=== PATIENT | female | born 1975 | race Caucasian/White ===

== ENCOUNTER → 2017-08-07 09:37 | Outpatient (CLI) | payer OTHER, SELFPAY ==
--- NOTE | 2017-08-07 09:59 | MRI_ITS ---
STUDY: MRI BRAIN WITH AND WITHOUT CONTRAST REASON FOR EXAM: Female, 42 years old. MIGRAINE X 1 year, worse x 7 months -- 1-2 a week. TECHNIQUE: Standardized multiplanar fat and water weighted pulse sequences were obtained. 7 ml of Gadavist contrast material was administered intravenously for the contrast portion of the examination. COMPARISON: None. FINDINGS: Normal size of the ventricles and extra-axial spaces for the patient's age. Normal white matter tracts of the supratentorial brain. Normal bilateral basal ganglia. Normal thalami. There is no extra-axial fluid accumulation. Normal flow voids within the major intracranial circulation suggesting patency by spin echo criteria. Normal venous enhancement. There is no enhancing intra-axial or extra-axial abnormality. Normal sella turcica, pituitary gland, infundibular stalk, optic chiasm and hypothalamus. Normal tectal plate and pineal gland. Normal midbrain, maik and medulla. Normal cerebellum. Normal basal cisterns. Normal bilateral temporal bones. Normal bilateral internal auditory canals. No demonstrated orbital abnormality, within the constraints of a routine brain study. Normal visualized paranasal sinuses. Normal calvarium and skull base. Normal visualized soft tissue structures. Normal visualized upper cervical spine. MRI/Brain W/WO Contrast IMPRESSION: Normal unenhanced and enhanced MRI of the brain. Electronically Signed: Indra Mobley MD at 11:01 EDT Tel , Service support ,
== END ==
PROVIDERS: Family Provider Family Medicine; PCP Family Medicine
DX: G43.901 Migraine, unspecified, not intractable, with status migrainosus (principal)
CPT/HCPCS: 70553; A9585

== ENCOUNTER 2019-09-22 10:02 | Emergency (ER) | payer OTHER, SELFPAY ==
[2019-09-22 10:04] VITALS: BP 161/97; PULSE 71; RESP 16; TEMP 36.3; O2SAT 99; BMI 22.7
[2019-09-22 10:06] VITALS: BP 161/97; PULSE 71; RESP 16; TEMP 36.3; O2SAT 99
--- NOTE | 2019-09-22 10:07 | NURSING ---
NO OLD EKGS
--- NOTE | 2019-09-22 10:22 | RAD_ITS ---
STUDY: X-RAY CHEST REASON FOR EXAM: Female, 44 years old. INCREASE IN DRY COUGH, CHEST PAIN THAT IS A DULL STAB, NUMB FEELING, LOST OF TASTE TECHNIQUE: Single AP portable view of the chest. COMPARISON: None. FINDINGS: The lungs are clear and expanded. There is no demonstrated pleural abnormality. Normal size heart. Normal mediastinum and chevy. Normal visualized pulmonary arteries. Normal visualized aortic arch and descending thoracic aorta. Normal visualized thoracic spine. Normal visualized ribs, clavicles, and shoulders. There is no demonstrated abnormality of the visualized soft tissue structures of the upper abdomen. RAD/Chest 1 View (Portable) IMPRESSION: Normal x-ray examination of the chest. Electronically Signed: Shantel Vargas, at 11:10 EDT Tel , Service support ,
--- NOTE | 2019-09-22 10:22 | EKG12_ITS ---
Test Reason : SOB Blood Pressure : / mmHG Vent. Rate : 063 BPM Atrial Rate : 063 BPM P-R Int : 136 ms QRS Dur : 092 ms QT Int : 432 ms P-R-T Axes : 040 076 056 degrees QTc Int : 442 ms Normal sinus rhythm Normal ECG Confirmed by NATTY NICHOLSON, ANSELMO ([id number]), editor sound RENATA DELONG ([id number]) on 09/28/2019 2:19:39 PM Referred By: MARISABEL Confirmed By:ANSELMO LUZ MD
--- NOTE | 2019-09-22 10:22 | ED.VIS.GEN ---
History of Present Illness Chief Complaint: Chest Pain Narrative: This patient is a 44-year-old female who presents with chest pain. This is been occurring intermittently over the past 1 week. She describes it as a dull aching feeling on the left side of her chest. No specific exacerbating or relieving factors. She denies any associated shortness of breath diaphoresis nausea or vomiting. She does also report a dry cough and loss of taste. No congestion rhinorrhea sore throat vomiting or diarrhea. Past Medical History - Allergies and Home Meds Allergies/Adverse Reactions: Allergies acetaminophen [From Vicodin] Allergy (Verified 09/22/19 10:03) Hives hydrocodone [From Vicodin] Allergy (Verified 09/22/19 10:03) Hives Primary Care Physician: NOT,DEFINED [NON-STAFF] - Past Medical History: None Smoking Status: Current every day smoker Review of Systems All systems negative except as indicated General: Denies: Fever Eyes: Denies: Visual changes - bilaterally ENT: Denies: Bilateral ear pain Cardiovascular: Reports: Chest pain Respiratory: Reports: Cough. Denies: Dyspnea, Sputum Gastrointestinal: Denies: Nausea, Vomiting, Diarrhea Musculoskeletal: Denies: Myalgias, Arthralgias Skin: Denies: Rash Neurological: Denies: Headache Physical Exam Vital Signs/Narrative: Vital Signs Temp Pulse Resp BP Pulse Ox 09/22/19 10:06 97.3 F L 71 16 161/97 H 99 09/22/19 10:04 97.3 F L 71 16 161/97 H 99 Inital Vital Signs reviewed: Yes General: Well nourished Head: Normocephalic Eyes: EOMI ENT: Moist mucous membranes Neck: Supple Cardiovascular: Regular rate, Regular rhythm Respiratory: No distress Abdomen: Soft Skin: Normal color Neurological: Alert Psychological: Normal affect Diagnostic/Tx/Re-eval - Medical Decision Making EKG shows normal sinus rhythm at a rate of 63 with no acute ischemic changes. Labs notable only for elevation of hemoglobin, patient is a smoker. Troponin is negative. Heart score is 1. Given that the patient does have a cough this could be due to an infectious etiology. She was advised on quarantine measures. She understands to return for new or worsening symptoms. She was advised on signs and symptoms to monitor for. The patient was discharged to follow-up with primary care. ED Disposition - Plan for ED Patient: Disposition: Home or Assisted Living Diagnosis: Chest pain, Cough Instructions: ED Chest Pain Atypical Unkn Cause Referrals: NOT,DEFINED [NON-STAFF] -
[2019-09-22 10:48] LABS: Absolute Lymphocyte Count 2.46 X10^3/uL (0.83-4.51); Basophil# 0.04 X10^3/uL; Basophil% 0.4 % (0-1); Eosinophil# 0.18 X10^3/uL; Eosinophils% 1.7 % (0-5); Hematocrit 55.4 % (37-47); Lymphocyte # 2.46 X10^3/ul (4.0); Lymphocyte % 23.3 % (19-41); Mean Corp Hgb Conc 33.2 g/dL (32-36); Mean Corpuscular Hgb 32.9 pg (27.0-32.0); Mean Corpuscular Volume 99.1 fL (81-99); Mean Platelet Vol. 11.6 fl (6.2-12.0); Monocyte# 0.79 X10^3/uL; Monocyte% 7.5 % (0-10); NRBC Flagged by Analyzer 0 % (0-5); Neutrophil # 7.03 X10^3/uL (2.7-7.7); Neutrophil % 66.6 % (47-70); Platelet Count 180 K/mm3 (150-450); RBC Distribution Width CV 13.3 % (11.6-14.6); RBC Distribution Width SD 48.7 fl (35.1-43.9); Red Blood Count 5.59 M/mm3 (4.2-5.4); White Blood Count 10.6 K/mm3 (4.4-11.0)
[2019-09-22 10:55] LABS: Differential Indicated SCAN CRITERIA MET; Hemoglobin 18.4 g/dL (12.0-15.0)
[2019-09-22 11:05] LABS: Anion Gap 4 (5-15); BUN 6 mg/dL (7-18); BUN/Creat Ratio 8.4 RATIO (10-20); Calcium,Total 9.3 mg/dL (8.5-10.1); Chloride 106 mmol/L (98-107); Creatinine, Serum 0.71 mg/dL (0.55-1.02); EST Glomerular Filtration Rate 95 mL/min (>60); Est Glom Filt Rate - Afr Amer 115 mL/min (>60); Estimated Creatinine Clearance 99.35 ml/min; Glucose 103 mg/dL (74-106); Potassium 3.5 mmol/L (3.5-5.1); Sodium Level 140 mmol/L (136-145)
[2019-09-22 11:13] VITALS: BP 161/90; PULSE 60; RESP 16; TEMP 36.8; O2SAT 98
--- NOTE | 2019-09-22 11:55 | ED.RN ---
IV DC'ED, CATHETER INTACT, SMALL GAUZE DRESSING PLACED. PT AMBULATES OUT OF ROOM WITHOUT DIFFICULTY. PATIENT AMBULATES OUT OF ROOM WITHOUT DIFFICULTY.
[2019-09-23 11:56] LABS: Pathologist Review Reviewed
== END 2019-09-22 11:55 | disposition home or self-care (01) ==
PROVIDERS: Emergency Provider Emergency Medicine
DX: R07.9 Chest pain, unspecified (principal); R05 Cough; F17.210 Nicotine dependence, cigarettes, uncomplicated
CPT/HCPCS: 71045; 80048; 84484; 85025; 93005; 99284; A4216

== ENCOUNTER 2020-09-04 14:11 | Emergency (ER) | payer OTHER, SELFPAY ==
[2020-09-04 14:11] VITALS: BP 157/86; PULSE 63; RESP 17; TEMP 36.2; O2SAT 99; BMI 23.3
--- NOTE | 2020-09-04 14:14 | RAD_ITS ---
STUDY: X-RAY - LEFT KNEE REASON FOR EXAM: Female, 45 years old. FALL, PAIN TECHNIQUE: 4 view(s) of the knee. COMPARISON: None. FINDINGS: Normal visualized distal femur. Normal visualized proximal tibia and fibula. Normal proximal tibiofibular articulation. Normal medial femorotibial compartment. Normal lateral femorotibial compartment. Normal patellofemoral articulation. Small joint effusion. RAD/Knee 4 or More Views IMPRESSION: Small joint effusion. Electronically Signed: Abdoul Rose MD at 14:36 EDT , Service support ,
--- NOTE | 2020-09-04 15:07 | ED.VIS.FALL ---
HPI HPI - Fall History of Present Illness Chief Complaint: Lower Extremity Injury Informant: patient Occured/Mechanism Occurred: Today Mechanism/Context: Yes trip Fall down steps #: 4 Pain/Injury Location: left knee Quality of Pain: Aching Current Severity: Moderate Maximum Severity: Severe Worsened by: walking, moving Relieved by: resting Associated Symptoms Associated Symptoms: Negative for Parasthesias, Weakness, Loss of function, Inability to ambulate, Loss of consciousness and Amnesia Narrative Narrative: Accidentally fell down her hardwood steps, sliding down. Bumped back of her head, no LOC. Also bumped her left elbow, without significant injury. Her left knee is hurting worse, she is unsure if she hit it against a surface or if she twisted/torqued it somehow. She has been able to walk on it since the injury. Pain is mostly medial. She denies any nausea, vomiting, vision changes, focal neurologic symptom. She does have a mild headache but is used to headaches, and this 1 is no worse than usual. Takes no anticoagulant or antiplatelet medications. [facility] Medical History (Updated 09/04/20 @ 15:[address] Gene Wilkerson MD) Anxiety Depression Hyperlipemia Migraine Home Medications atorvastatin 20 mg PO DAILY 09/04/20 [History Last Taken Unknown] escitalopram oxalate 10 mg PO DAILY 09/04/20 [History Last Taken Unknown] Allergy/AdvReac Type Severity Reaction Status Date / Time acetaminophen [From Vicodin] Allergy Hives Verified 09/04/20 14:11 hydrocodone [From Vicodin] Allergy Hives Verified 09/04/20 14:11 Surgical History (Updated 09/04/20 @ 15:[address] Gene Wilkerson MD) History of left knee surgery Social History Smoking Status: Current every day smoker ROS ROS ED Constitutional Constitutional ED: Denies chills or fever(s) Eyes Eyes: Denies change in vision or diplopia ENT ENT ED: Denies rhinorrhea or sore throat Cardiovascular Cardiovascular: Denies chest pain or palpitations Respiratory/Chest Respiratory/Chest: Denies cough or dyspnea Gastrointestinal Gastrointestinal: Denies abdominal pain, diarrhea, nausea or vomiting Genitourinary Genitourinary ED: Denies dysuria or hematuria Musculoskeletal Musculoskeletal: Reports extremity pain; Denies back pain or neck pain Integumentary Denies abscess or rash Neurologic Neurologic: Reports headache(s); Denies dizziness, paresthesias or weakness Psychiatric Psychiatric: Denies anxiety or suicidal thoughts EXAM Physical Exam Const Vital Signs: 09/04/20 14:11 Temperature 97.1 F L Temperature Source Temporal Pulse Rate 63 Respiratory Rate 17 Blood Pressure 157/86 H Blood Pressure Mean 109 Pulse Ox 99 Oxygen Delivery Method Room Air Positive well nourished and well developed General Appearance ED: well developed and NAD HEENT Reports moist mucous membranes normocephalic and atraumatic Eyes PERRL and EOMs intact bilaterally Neck full ROM and supple Resp normal respiratory effort and clear to auscultation bilaterally Cardio regular rate, regular rhythm and no murmurs GI non-tender and non-distended Auscultation: normoactive bowel sounds Palpation: soft Back/Spine no CVA tenderness General Back: other FROM Extremity normal to inspection and no calf tenderness General Extremety ED: Negative for edema or pulses abnormal General Extremity: Negative for edema or pulses abnormal Left Lower Extremity: knee joint inspection (Skin intact, no obvious wounds), palpation (Tender to palpation medial to the patella, around the superior and the inferior poles. Nontender at the joint line of the knee proper in the lateral aspect and tibial tuberosity and patella itself. There is a small effusion.), ROM (Limited at extremes of extension and flexion. Extensor mechanism intact.), neurovascular exam (Intact) and other (All ligaments stable with short endpoints on stressing and no major pains) Neuro oriented x3, CN's II-XII intact bilaterally and no sensory deficits noted Sensorium / Orientation: awake and alert Motor Exam: strength 5/5 throughout Skin no rashes or lesions noted and no wounds MDM MDM MDM Narrative Medical decision making narrative: On my interpretation 4 views of the left knee show no acute abnormality. Joint effusion noted by radiology. Patient was reassured, differential includes contusion and internal derangement or sprain. Not knowing the mechanism I am unable to rule out the possibility of a meniscal injury here. At this time supportive care, using pain as her guide, ice, ibuprofen which she was given a dose of here, as well as an Mikey wrap. She is comfortable with that plan of following up if pain is not proved within 1 week. Radiography Diagnostic Testing: Radiology Impression Knee X-Ray 09/04/20 14:14 IMPRESSION: Small joint effusion. Electronically Signed: Abdoul Rose MD at 14:36 EDT , Service support , Discharge Plan Triage Chief Complaint: Lower Extremity Injury ED Provider: Gene Wilkerson Dx/Rx/DC Orders Clinical Impression: Injury of knee, left, Closed head injury without loss of consciousness Instructions: ED Bandage Elastic Wrap, ED Knee Sprain Prescriptions: No Action atorvastatin 20 mg tablet 20 mg PO DAILY RF: 0 escitalopram oxalate 10 mg tablet 10 mg PO DAILY RF: 0 Primary Care Provider: Dhara Tomlinson NP Referrals: Dhara Tomlinson MOVIE SHOT CAMERAMAN, MOVIE SHOT CAMERAMAN-C [Primary Care Provider] - 1 Week if not improving Activity Restrictions/Additional Instructions: Ibuprofen as needed/able for pain. Rest with icing. Disposition Disposition: Home, self care
[2020-09-04] MEDS: Ibuprofen 600 MG Tablet PO (15:22)
== END 2020-09-04 15:25 | disposition home or self-care (01) ==
PROVIDERS: Emergency Provider Emergency Medicine; PCP Registered Nurse
DX: S09.90XA Unspecified injury of head, initial encounter (principal); S89.92XA Unspecified injury of left lower leg, initial encounter; W10.9XXA Fall (on) (from) unspecified stairs and steps, initial encounter; Y93.9 Activity, unspecified; Y92.9 Unspecified place or not applicable; Y99.9 Unspecified external cause status; E78.5 Hyperlipidemia, unspecified; F32.9 Major depressive disorder, single episode, unspecified; F41.9 Anxiety disorder, unspecified; F17.200 Nicotine dependence, unspecified, uncomplicated; Z79.899 Other long term (current) drug therapy
CPT/HCPCS: 73564; 99283

== ENCOUNTER 2022-06-28 12:50 | Day surgery (SDC) | payer MEDICAID, SELFPAY ==
[2022-06-28 13:19] VITALS: BP 133/82; PULSE 57; RESP 18; TEMP 36.2; O2SAT 100; BMI 24.1
[2022-06-28] MEDS: Lactated Ringers 1,000 ML 15 ML IV (13:44)
[2022-06-28] MEDS: Clindamycin 900 MG/50 ML BAG 75 MG IV (14:36)
[2022-06-28] MEDS: Bupivacaine 0.5% PF 10 ML VIAL (14:40)
[2022-06-28 15:41] VITALS: BP 127/72; BP 133/82; PULSE 63; RESP 16; TEMP 36.5; O2SAT 94
--- NOTE | 2022-06-28 15:46 | EX.PCM.DISCH ---
Discharge Instructions Follow Up Care Test Results: Test results from this visit will be discussed in further detail at your follow-up appointment, if applicable. Discharge Plan Admission Attending Provider: Ramirez South Primary Care Provider: Dhara Tomlinson NP Discharge Orders/Prescriptions Prescriptions: No Action atorvastatin 20 mg tablet 20 mg PO DAILY escitalopram oxalate 10 mg tablet 10 mg PO DAILY bupropion HCl [Wellbutrin SR] 150 mg Tablet Sustained-Release 12 Hr 150 mg PO BID Aleve-D Sinus and Headache 220-120 mg Tablet Extended Release 12 Hr 1 tab PO BID PRN (Reason: Migraine Headache) Referrals / Follow Up: Dhara Tomlinson NP, HEPATOLOGY PHYSICIAN-C [Primary Care Provider] - Disposition Disposition (needs filled in before D/C Order can be placed): Home, Self Care
--- NOTE | 2022-06-28 15:47 | PCM.OPRPT ---
Report of Operation Date of Procedure: 06/28/22 Pre-Operative Diagnosis: 1. hallux IPJ sesmoid right 2. tailors bunion right 3. gryhphotic toenail 1 right Post-Operative Diagnosis: same Surgery/Procedure Performed:: 1. excision 2. ostectomy 3. excision Surgeon: Ramirez South Type of Anesthesia: General/Supplemental Specimen's removed: none sent, normal bone ossicle Drains: none Estimated Blood Loss (mL): 5 ml Description of Procedure: sterile prep, ankle tourniuqet at 250 MMHg. medial great toe incision, dissected bluntly to protect neurovasc structures and FHL tendon. incision along periosteum and capsule. excised sesmoid. incision along dorsal tailors bunion. carefule disection to protect neurovasc structures. periosteal and capsular incision. lateral and plantar condyle resected with a saw. great nail avulsed totally. small blade used to resect nail matrix and nail bed, closed with steris strips. all wound closed deep with 3.0 vicryl and skin with 3.0 nylon. bleeding well controlled, full vascular status restored after dropping tourniquet. Complications none Admit VTE Documentation VTE Present on Admission: Yes VTE Mechan Device Prophylaxis: SCD's VTE Pharm Prophylaxis ordered?: No Reason prophylaxis not ordered:: Treatment Not Indicated
[2022-06-28 15:50] VITALS: BP 133/82; BP 134/73; PULSE 59; RESP 16; O2SAT 96
[2022-06-28 16:00] VITALS: BP 123/73; BP 133/82; PULSE 63; RESP 16; O2SAT 93
[2022-06-28 16:15] VITALS: BP 116/82; BP 133/82; PULSE 59; RESP 16; TEMP 36.4; O2SAT 97
[2022-06-28 16:41] VITALS: BP 133/82
== END 2022-06-28 16:45 | disposition home or self-care (01) ==
LOC: SDC 12:53 → AC 12:54
PROVIDERS: PCP Registered Nurse; Referring Provider Podiatrist Foot & Ankle Surgery; Visit Provider Podiatrist Foot & Ankle Surgery
PROC: (CPT 28292; principal; 2022-06-28 14:15)
DX: M21.621 Bunionette of right foot (principal); J44.9 Chronic obstructive pulmonary disease, unspecified; M20.5X1 Other deformities of toe(s) (acquired), right foot; L60.2 Onychogryphosis; F41.9 Anxiety disorder, unspecified; F17.210 Nicotine dependence, cigarettes, uncomplicated; Z79.899 Other long term (current) drug therapy
CPT/HCPCS: 28110; 11750; 28124; 01480; J7120; J2405

== ENCOUNTER 2023-07-27 21:20 | Emergency (ER) | payer SELFPAY ==
[2023-07-27 21:21] VITALS: BP 155/93; PULSE 107; RESP 44; TEMP 36.4; O2SAT 97; BMI 23.6
[2023-07-27 21:23] VITALS: BP 155/93; PULSE 108; RESP 44; TEMP 36.4; O2SAT 97
[2023-07-27 21:34] VITALS: O2SAT 99
--- NOTE | 2023-07-27 21:40 | EDS_ITS ---
HPI <LON Ann - Last Filed: 07/27/23 22:17> History of Present Illness Chief Complaint: Shortness of Breath Narrative Narrative: Patient is a 48-year-old female who currently does not see a PCP who presents to the emergency department for 4 days of worsening cough, congestion, difficulty breathing. Patient was seen in urgent care greater than 2 weeks ago, placed on a prednisone burst as well as antibiotics. Patient states he only felt slightly better. Patient does smoke 1 pack/day, she states that over the last 24 hours she has been unable to perform daily activities because she is so short of breath. She denies any specific pain. She is bringing up green to yellow sputum. She denies any fevers however have subjective chills. PFSH <LON Ann - Last Filed: 07/27/23 22:17> [facility] Medical History (Updated 07/27/23 @ 22:14 by LON Ann) Alcohol use Anxiety Asthma Chronic cough Depression Easy bruising Hyperlipemia Low iron Marijuana use Migraine Piercing Restless legs Shortness of breath on exertion Smoker Wears contact lenses Wears partial dentures Home Medications albuterol sulfate 90 mcg/actuation aerosol inhaler (Ventolin HFA) 2 puff inhalation Q4H PRN PRN Wheezing 10 days #1 device 07/27/23 [Rx Last Taken Unknown] prednisone 20 mg tablet 40 mg (2 x 20 mg) PO DAILY 10 days #20 tabs 07/27/23 [Rx Last Taken Unknown] Allergy/AdvReac Type Severity Reaction Status Date / Time acetaminophen [From Vicodin] Allergy Hives Verified 07/27/23 21:21 hydrocodone [From Vicodin] Allergy Hives Verified 07/27/23 21:21 Surgical History Hx of colonoscopy Hx of dilation and curettage Hx of foot surgery Hx of ovarian cystectomy Social History Smoking Status: Current every day smoker tobacco type: cigarettes ROS <LON Ann - Last Filed: 07/27/23 22:17> ROS ED ROS Narrative Constitutional: Negative for fever, chills, weight loss, weakness Eyes: Negative for vision loss, vision change, double vision ENT: Negative for any sore throat, ear pain, congestion Cardiovascular: Negative for any chest pain, tightness, palpitations Respiratory: Negative for any hemoptysis, orthopnea. Positive for cough, dyspnea, dyspnea on exertion, sputum production Gastrointestinal: Negative for any abdominal pain, nausea, vomiting, diarrhea, constipation, blood in stool, blood in vomit : Negative for any urinary frequency, dysuria, retention, blood in urine Muscle skeletal: Negative for any neck pain, back pain Neurological: Negative for any headache, syncope, dizziness Skin: Negative for any rashes, itching, abrasions, lacerations Psychiatric: Negative for any depression, anxiety, stress, suicidal ideation, homicidal ideation Hematologic: Negative for any excessive bruising, easy bleeding EXAM <LON Ann - Last Filed: 07/27/23 22:17> Physical Exam Narrative Exam Narrative: Vital signs reviewed. Tachycardic, tachypneic, HEET: Head normocephalic atraumatic, TMs clear bilaterally. Posterior pharynx is clear, moist mucous membranes. Nares clear bilaterally. Neck: Supple with no lymphadenopathy or tenderness. No signs of meningismus. Cardiac: Regular rate and rhythm no murmurs gallops or rubs, equal peripheral pulses bilaterally. Respiratory: Patient has slight inspiratory, expiratory wheezing, harsh cough. No chest tenderness. Abdomen: Soft, nontender, nondistended. No abdominal bruit or pulsatile masses. No hepatosplenomegaly Extremities: No peripheral edema, no signs of gross trauma or deformity. Active full range of motion of all extremities. Neuro: Cranial nerves II through XII intact, no focal neurological deficits. Skin: Clean dry and intact with no rash, purpura, petechiae, vesicles or pustules. Backs/flank: No CVA tenderness, no midline spinal tenderness, no deformity. Psych: Normal mood and affect. No SI, HI or acute psychosis. Const Vital Signs: 07/27/23 21:21 07/27/23 21:23 07/27/23 21:34 Temperature 97.5 F L 97.5 F L Temperature Source Temporal Temporal Pulse Rate 107 H 108 H Respiratory Rate 44 H 44 H Respiratory Effort Short of Breath Respiratory Depth Normal Respiratory Pattern Tachypnea Blood Pressure 155/93 H 155/93 H Blood Pressure Mean 113 113 Pulse Ox 97 97 Oxygen Delivery Method Room Air 07/27/23 21:49 Temperature Temperature Source Pulse Rate 111 H Respiratory Rate 24 H Respiratory Effort Respiratory Depth Respiratory Pattern Tachypnea Blood Pressure Blood Pressure Mean Pulse Ox Oxygen Delivery Method <Dr. Walker Jrodan MD - Last Filed: 07/27/23 23:11> Physical Exam Const Vital Signs: 07/27/23 21:21 07/27/23 21:23 07/27/23 21:34 Temperature 97.5 F L 97.5 F L Temperature Source Temporal Temporal Pulse Rate 107 H 108 H Respiratory Rate 44 H 44 H Respiratory Effort Short of Breath Respiratory Depth Normal Respiratory Pattern Tachypnea Blood Pressure 155/93 H 155/93 H Blood Pressure Mean 113 113 Pulse Ox 97 97 Oxygen Delivery Method Room Air 07/27/23 21:49 Temperature Temperature Source Pulse Rate 111 H Respiratory Rate 24 H Respiratory Effort Respiratory Depth Respiratory Pattern Tachypnea Blood Pressure Blood Pressure Mean Pulse Ox Oxygen Delivery Method MDM <LON Ann - Last Filed: 07/27/23 22:17> [facility] Treatment and Re-Evaluation :: Patient is stable, vital signs are stable, patient is tachypneic, patient does have some advantageous lung sounds which is expiratory wheezing. Differential diagnosis includes however is not limited to: Community-acquired pneumonia, COPD exacerbation, asthma exacerbation, influenza, COVID-19. Patient will receive breathing treatments, oral steroids, two-view chest x-ray. All radiologic examinations were read, reviewed by the emergency department attending. From these reads, a plan of care will be put in place. Patient on reevaluation was feeling better. At this time, patient's 2 view chest x-ray was unremarkable, COVID-19, influenza, RSV was negative. At this time, patient be diagnosed with COPD exacerbation. I did consult the patient on quitting tobacco. Patient will be placed on 40 mg of prednisone for 10 days. She will follow-up closely with her PCP. I will give her another refill on her albuterol inhaler. She instructed return for any worsening symptoms. <Dr. Walker Jordan MD - Last Filed: 07/27/23 23:11> [facility] Narrative Medical decision making narrative: I have personally performed a face to face assessment of the patient and have reviewed the MARGARET Note. I performed a substantive portion of the visit including all aspects of the following. My [place] findings include: History is 48-year-old female smoker URI symptoms for more than a week. Already was on an antibiotic and sounds like possibly steroids per a urgent care. She is wheezing and short of breath. Denies any chest pain or hemoptysis. No leg pain or swelling. Exam is [48-year-old female vital signs stable. Pulse ox 97% on room air no signs hypoxia. HEENT exam unremarkable. Neck nontender no JVD. No lymphadenopathy. Lungs expiratory wheezing. Equal and symmetrical. Prolonged expiratory phase. Increased respiratory rate. Tachycardic. Heart tachycardic 110 no murmur. Chest wall nontender. No crepitance or subcu air. Abdomen soft nontender. Moving all 4 extremities. Calves are nontender without edema or cords. She is awake alert no focal motor deficits.] Medical Decision Making [suspect underlying COPD with a viral URI. Chest x-ray was obtained shows no pneumonia. Chronic changes. No effusions. COVID, flu and RSV were all negative.] Other additions or changes: [Patient treated with aerosols and oral prednisone. She is improved on repeat exam at 11 PM. She will be discharged home on prednisone 40 mg a day for 10 days. Encouraged to stop smoking. Use her inhaler. Follow-up with her primary care physician.] History & Record Review Discussion w/independent historian: Patient Additional record(s) reviewed:: Prior inpatient record, Prior outpatient record, Prior ED visit and Prior labs Lab Data Attestation: I reviewed the patient's lab results. Lab results narrative: COVID, flu and RSV negative. Radiography Chest X-Ray - ED: 2 View, Read by ED Physician, Normal, Heart, Lungs, Mediastinum, Bony Structures, No Acute Disease and Chronic Changes Diagnostic Testing: Chest x-ray, 2 views, interpreted by myself shows normal cardiac silhouette. Normal mediastinum. No pneumonia. No pneumothorax. Chronic changes in the lung consistent with underlying lung disease. Discharge Plan Triage Chief Complaint: Shortness of Breath ED Midlevel Provider: Edmar Domínguez ED Provider: Walker Jordan Dx/Rx/DC Orders Clinical Impression: COPD exacerbation Instructions: Asthma and COPD Prescriptions: New prednisone 20 mg tablet 40 mg PO DAILY 10 Days Qty: 20 0RF albuterol sulfate [Ventolin HFA] 90 mcg/actuation HFA aerosol inhaler 2 puff inhalation Q4H PRN PRN (Reason: Wheezing) 10 Days Qty: 1 2RF Primary Care Provider: Dhara Tomlinson NP Referrals: Dhara Tomlinson CHILD WELFARE COUNSELOR, CHILD WELFARE COUNSELOR-C [Primary Care Provider] - Activity Restrictions/Additional Instructions: Take the prednisone 40 mg daily for 10 days, use the albuterol inhaler. Try your best to decrease your tobacco use. Disposition Disposition: Home, Self Care
[2023-07-27 21:49] VITALS: PULSE 111; RESP 24
[2023-07-27] MEDS: Ipratropium/Albuterol Sulfate 3 ML AMPUL.NEB INHALATION (21:49)
[2023-07-27] MEDS: Albuterol 2.5 MG/3 ML VIAL.NEB. 5 MG INHALATION (21:49)
[2023-07-27] MEDS: predniSONE 20 MG Tablet 60 MG PO (21:51)
--- NOTE | 2023-07-27 22:19 | CPS ---
x2 Albuterol given to pt. in ER
[2023-07-27 22:23] VITALS: BP 102/72; PULSE 97; RESP 23; TEMP 37.2; O2SAT 93
--- NOTE | 2023-07-27 22:35 | RAD_ITS ---
INDICATION: cough EXAMINATION/TECHNIQUE: X-RAY - XR Chest 2 Views COMPARISON: None. FINDINGS: LINES/DEVICES: None. LUNGS: No consolidation, edema or effusion. No pneumothorax. MEDIASTINUM AND CARDIOVASCULAR STRUCTURES: Cardiac silhouette not enlarged. Central airways and mediastinal contour are unremarkable. BONES AND SOFT TISSUES: Unremarkable. RAD/Chest PA and Lateral IMPRESSION: No radiographic evidence of acute cardiopulmonary disease. Electronically Signed: Christiano Peralta MD at 23:12 EDT ,
[2023-07-27 23:11] VITALS: BP 102/72; PULSE 89; RESP 22; TEMP 36.6; O2SAT 96
== END 2023-07-27 23:13 | disposition home or self-care (01) ==
PROVIDERS: Emergency Provider Emergency Medicine; PCP Registered Nurse; Visit Provider Emergency Medicine
DX: J44.1 Chronic obstructive pulmonary disease with (acute) exacerbation (principal); E78.5 Hyperlipidemia, unspecified; Z11.52 Encounter for screening for COVID-19; F17.210 Nicotine dependence, cigarettes, uncomplicated
CPT/HCPCS: 71046; 87631; 94640; 99282

== ENCOUNTER 2023-12-16 07:43 | Emergency (ER) | payer SELFPAY ==
[2023-12-16 07:44] VITALS: BP 160/140; PULSE 75; RESP 18; O2SAT 98
[2023-12-16 07:46] VITALS: BP 160/140; PULSE 71; RESP 18; TEMP 35.5; O2SAT 98; BMI 23.5
[2023-12-16 07:49] VITALS: TEMP 36.6
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
[2023-12-16 08:23] LABS: Absolute Lymphocyte Count 3.43 X10^3/uL (0.83-4.51); Absolute Neutrophil Count 8.4 X10^3/uL (2.0-7.7); Basophil# 0.04 X10^3/uL; Basophil% 0.3 % (0-1); Eosinophil# 0.18 X10^3/uL; Eosinophils% 1.4 % (0-5); Hematocrit 55.3 % (37-47); Hemoglobin 18.5 g/dL (12.0-15.0); Lymphocyte # 3.43 X10^3/ul (0.83-4.51); Lymphocyte % 26.3 % (19-41); Mean Corp Hgb Conc 33.5 g/dL (32-36); Mean Corpuscular Hgb 32.1 pg (27.0-32.0); Mean Platelet Vol. 12.1 fl (6.2-12.0); Monocyte# 0.87 X10^3/uL; Monocyte% 6.7 % (0-10); NRBC Flagged by Analyzer 0 % (0-5); Neutrophil % 64.5 % (47-70); Platelet Count 189 K/mm3 (150-450); RBC Distribution Width CV 13.4 % (11.6-14.6); RBC Distribution Width SD 47.8 fl (35.1-43.9); Red Blood Count 5.76 M/mm3 (4.2-5.4)
[2023-12-16 08:32] LABS: ALB/GLOB Ratio 0.9 RATIO (0.9-2.4); AST(SGOT) 38 U/L (15-37); Alanine Aminotransfer ALT/SGPT 32 U/L (13-56); Albumin, Serum 3.4 g/dL (3.2-5.0); Alkaline Phosphatase 95 U/L (45-117); Anion Gap 4 (5-15); BUN 6 mg/dL (7-18); BUN/Creat Ratio 7.9 RATIO (10-20); Calcium,Total 9.1 mg/dL (8.5-10.1); Chloride 108 mmol/L (98-107); Creatinine, Serum 0.76 mg/dL (0.55-1.02); EST Glomerular Filtration Rate 86 mL/min (>60); Est Glom Filt Rate - Afr Amer 105 mL/min (>60); Estimated Creatinine Clearance 88.99 ml/min; Globulin 3.7 g/dL (2.2-4.2); Glucose 118 mg/dL (74-106); Lipase 34 U/L (13-75); Potassium 3.1 mmol/L (3.5-5.1); Protein, Total 7.1 g/dL (6.4-8.2); Sodium Level 141 mmol/L (136-145)
[2023-12-16 08:33] LABS: International Normalized Ratio 1.1; Partial Thromboplast Time 26.2 Seconds (24.1-36.2); Prothrombin Time (Protime)PT. 14.3 SECONDS (11.7-14.9)
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
[2023-12-16] MEDS: 0.9% Normal Saline (500mL Bag) 500 ML 1000 ML IV (08:48)
[2023-12-16] MEDS: Lidocaine 1% (20 ml mdv) 20 ML Vial INFILT (08:49)
[2023-12-16 09:44] VITALS: BP 154/85; PULSE 78; RESP 17; O2SAT 97
[2023-12-16 10:16] VITALS: BP 143/88; PULSE 88; RESP 19; TEMP 36.6; O2SAT 98
[2023-12-18 08:48] LABS: Pathologist Review Reviewed
== END 2023-12-16 10:20 | disposition home or self-care (01) ==
PROVIDERS: Emergency Provider Emergency Medicine; PCP Registered Nurse; Visit Provider Emergency Medicine
DX: S71.111A Laceration without foreign body, right thigh, initial encounter (principal); J44.9 Chronic obstructive pulmonary disease, unspecified; S20.20XA Contusion of thorax, unspecified, initial encounter; S30.1XXA Contusion of abdominal wall, initial encounter; N83.201 Unspecified ovarian cyst, right side; S90.32XA Contusion of left foot, initial encounter; S60.222A Contusion of left hand, initial encounter; F17.210 Nicotine dependence, cigarettes, uncomplicated; V43.52XA Car driver injured in collision with other type car in traffic accident, initial encounter
CPT/HCPCS: 12002; 71260; 73130; 73521; 73630; 74177; 80053; 83690; 85025; 85610; 85730; 93005; 96360; 99285; J7040; Q9967; A4216

== ENCOUNTER 2023-12-22 21:05 | Emergency (ER) | payer SELFPAY ==
[2023-12-22 21:05] VITALS: BP 145/87; PULSE 87; RESP 16; TEMP 36.6; O2SAT 98; BMI 22.7
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
[2023-12-22 22:06] LABS: Mucous, Urine 0 SEEN /hpf (<or=2+)
[2023-12-22 22:12] LABS: Color, Urine Straw (Yellow); Glucose, Dipstick Normal (Normal); Ketone-Dipstick Negative (Negative); Leukocyte Esterase-Dipstick 25 /ul (Negative); Nitrite-Dipstick Negative (Negative); Occult Blood-Urine 150 /ul (Negative); Protein-Dipstick Negative (Negative); Urine Bilirubin Dipstick Negative (Negative); Urine Clarity Clear (Clear); Urine Urobilinogen Normal (Normal); Urine pH 6.5 (5.0 - 8.0)
[2023-12-22 22:28] LABS: Bacteria 1+ /hpf (None Seen); Red Blood Cells-Urine 0-5 SEEN /hpf (0-5); Squamous Epithelial Cells - UA 0-5 SEEN /hpf (5-10); White Blood Cells 0-5 SEEN /hpf (0-5)
[2023-12-22 23:12] VITALS: BP 132/84; PULSE 82; RESP 19; TEMP 36.4; O2SAT 100
== END 2023-12-22 23:12 | disposition home or self-care (01) ==
PROVIDERS: Emergency Provider Emergency Medicine; PCP Registered Nurse; Visit Provider Emergency Medicine
DX: S20.20XA Contusion of thorax, unspecified, initial encounter (principal); S39.012A Strain of muscle, fascia and tendon of lower back, initial encounter; M25.551 Pain in right hip; S70.01XA Contusion of right hip, initial encounter; R39.15 Urgency of urination; R35.0 Frequency of micturition; M79.622 Pain in left upper arm; E78.5 Hyperlipidemia, unspecified; F17.210 Nicotine dependence, cigarettes, uncomplicated; J45.909 Unspecified asthma, uncomplicated; V43.62XD Car passenger injured in collision with other type car in traffic accident, subsequent encounter; S71.111D Laceration without foreign body, right thigh, subsequent encounter; W26.8XXD Contact with other sharp object(s), not elsewhere classified, subsequent encounter
CPT/HCPCS: 81001; 99282